=== PATIENT | female | born 1995 | race Caucasian/White ===

== ENCOUNTER 2016-12-16 22:41 | Emergency (ER) | payer BC ==
[2016-12-16] MEDS ORDERED: ONDANSETRON 4 MG TAB.RAPDIS PO ONE (23:25)
[2016-12-16] MEDS ORDERED: CEPHALEXIN 500 MG CAPSULE PO ONE (23:25)
[2016-12-16] MEDS ORDERED: OXYCODONE-ACETAMINOPHEN 5-325 MG TABLET PO ONE (23:25)
--- NOTE | 2016-12-16 23:26 | ER Document Report ---
ED Skin Rash/Insect Bite/Abscs - General Chief Complaint: Burn Stated Complaint: LEG PAIN,SEVERE SUNBURN Time seen by provider: 23:20 Notes: Patient is a 21-year-old female that comes emergency department for chief complaint of pain to her lower legs, she states 1 week ago (last Wednesday) [place] and got kinney to her legs, shoulders, and arms with the worst kinney being on her lower legs and ankles. She was seen on Wednesday and given ibuprofen, Tylenol 3, and service of dizziness cream. She states she has been applying these. One of the blisters on her right ankle has popped within the past 2 days. She denies fever, vomiting, she states she has been drinking lots of fluids. She is up-to-date on her tetanus within 5 years. TRAVEL OUTSIDE OF THE [place] IN LAST 30 DAYS: No Past Medical History - General Information source: Patient - Social History Smoking Status: Never Smoker Frequency of alcohol use: None Drug Abuse: None Lives with: Family Family History: Reviewed & Not Pertinent Patient has suicidal ideation: No Patient has homicidal ideation: No - Medical History Medical History: Negative Renal/ Medical History: Denies: Hx Peritoneal Dialysis Surgical Hx: Negative - Immunizations Immunizations up to date: Yes Hx Diphtheria, Pertussis, Tetanus Vaccination: Yes Review of Systems - Review of Systems Constitutional: No symptoms reported EENT: No symptoms reported Cardiovascular: No symptoms reported Respiratory: No symptoms reported Gastrointestinal: No symptoms reported Genitourinary: No symptoms reported Female Genitourinary: No symptoms reported Musculoskeletal: No symptoms reported Skin: See HPI Hematologic/Lymphatic: No symptoms reported Neurological/Psychological: No symptoms reported Physical Exam - Vital signs Vitals: Temp Pulse Resp BP Pulse Ox 98.6 F 126 H 18 183/107 H 100 12/16/16 22:48 12/16/16 22:48 12/16/16 22:48 12/16/16 22:48 12/16/16 22:48 Interpretation: Normal - General General appearance: Appears well, Alert, Anxious In distress: None - HEENT Head: Normocephalic, Atraumatic Eyes: Normal Conjunctiva: Normal Extraocular movements intact: Yes Eyelashes: Normal Pupils: PERRL Nasal: Normal Mouth/Lips: Normal Mucous membranes: Normal Pharynx: Normal Neck: Normal - Respiratory Respiratory status: No respiratory distress Chest status: Nontender Breath sounds: Normal. No: Decreased air movement, Wheezing Chest palpation: Normal - Cardiovascular Rhythm: Regular, Tachycardia Heart sounds: Normal auscultation, S1 appreciated, S2 appreciated Murmur: No - Abdominal Inspection: Normal Distension: No distension Bowel sounds: Normal Tenderness: Nontender. No: Tender, Guarding Organomegaly: No organomegaly - Back Back: Normal, Nontender. No: Tender - Extremities General upper extremity: Other - Peeling skin of the arms bilaterally, no other abnormalities noted General lower extremity: Other - Mild 0+ bilateral lower extremity swelling with first-degree kinney over the entire anterior lower extremities (not circumferential), second-degree kinney over the bilateral medial ankles, blisters. Tiny amount of erythema slightly more intense around the right ankle and up the leg with mild extra heat. Normal distal pulses, capillary refill, and sensation - Neurological Neuro grossly intact: Yes Cognition: Normal Orientation: AAOx4 Alex Coma Scale Eye Opening: Spontaneous [place] Coma Scale Verbal: Oriented [place] Coma Scale Motor: Obeys Commands Alex Coma Scale Total: 15 Speech: Normal Motor strength normal: LUE, RUE, LLE, RLE Sensory: Normal - Psychological Associated symptoms: Normal affect, Normal mood - Skin Skin Temperature: Warm Skin Moisture: Dry Skin Color: Normal Course - Re-evaluation Re-evalutation: Patient with bilateral lower extremity swelling with first-degree kinney over the entire lower extremities, second-degree kinney over the bilateral medial ankles, blisters. Tiny amount of erythema slightly more intense around the right ankle and up the leg with mild extra heat, suggestive of early cellulitis. Covering with Keflex and Bactrim. Skin extending up bilateral medial legs has an irritated appearance with slight dark discoloration, appears to possibly be reacting to the silver sulfadiazine. Recommended stopping Silvadene, blisters were popped and dressed, provided with pain medicine, recommended elevation of the extremities while taking the antibiotic, discussed treatment of the second-degree kinney. No circumferential kinney, no severe pain , patient is calm and relaxed. No evidence of compartment syndrome. Normal distal neurovascular exam. Patient initially anxious, afterwards she began to calm down, tachycardia resolved, blood pressure starting to downtrend. Afebrile. Patient evaluated at bedside by Dr. Rios, agrees with care, agrees with discontinuation of Silvadene and replacement with bacitracin, agrees with draining and dressing of the blisters, agrees with Keflex antibiotic, also recommends prednisone and Benadryl for suspected possible allergic component to sulfa. Discussed with patient treatment in detail, provided with work excuse so she could elevate her legs, discussed return precautions in detail, patient states understanding and agreement. - Vital Signs Vital signs: Temp Pulse Resp BP Pulse Ox 98.1 F 97 16 152/102 H 98 12/17/16 03:04 12/17/16 03:04 12/17/16 03:04 12/17/16 03:04 12/17/16 03:04 Discharge - Discharge Clinical Impression: Second degree burn, Sunburn, Swelling of lower extremity Leg pain Qualifiers: Laterality: bilateral Qualified Code(s): M79.604 - Pain in right leg Condition: Stable Disposition: HOME, SELF-CARE Additional Instructions: Examination is consistent with the healing process from first and second-degree kinney along with what appears to be an area of possible developing cellulitis infection and also likely irritation from the sulfur from the Silvadene. Take the antibiotic as prescribed, elevate your feet, put bacitracin antibiotic and clean dressing over the areas of blistering, clean the areas to remove the skin from the previous blisters. Take the prednisone and Benadryl as prescribed. Follow-up with primary care. Return immediately if you develop any worsening symptoms including spreading redness, increased pain, fever, discolored drainage , or any other concerning symptoms. Prescriptions: Cephalexin Monohydrate [Keflex 500 mg Capsule] 500 mg PO QID #28 capsule Diphenhydramine HCl 25 mg PO Q6 PRN #24 capsule PRN Reason: Oxycodone HCl/Acetaminophen [Percocet 5-325 mg Tablet] 1 - 2 tab PO Q4H PRN #15 tablet PRN Reason: Prednisone [Deltasone 10 mg Tablet] 10 mg PO ASDIR PRN #21 tablet PRN Reason: Forms: Return to Work, Elevated Blood Pressure
[2016-12-17 03:06] VITALS: BP 152/102
== END 2016-12-17 03:06 | disposition home or self-care (01) ==
LOC: ER 22:41
DX: L55.1 Sunburn of second degree (principal); M79.89 Other specified soft tissue disorders; M79.604 Pain in right leg; F41.9 Anxiety disorder, unspecified
CPT/HCPCS: 99282; S0119